=== PATIENT | male | born 1980 | race Caucasian/White ===

== ENCOUNTER 2020-06-01 11:27 | Emergency (ER) | payer OTHER ==
[~2020-06-01] VITALS: Ht 170.2 cm; Wt 72.6 kg
[~2020-06-01 11:27] MED LIST: CELEXA 10 MG TA10 M1 PO; CELEXA40 MG PO; NORCO 5-325 TA1 EACH PO
[2020-06-01 12:29] LABS: URINE BILIRUBIN NEGATIVE (Negative); URINE BLOOD NEGATIVE (Negative); URINE CLARITY CLEAR; URINE COLOR YELLOW; URINE GLUCOSE-RANDOM 1+ (Negative); URINE KETONES NEGATIVE (Negative); URINE LEUKOCYTES-REFLEX NEGATIVE (Negative); URINE NITRITE-REFLEX NEGATIVE (Negative); URINE PROTEIN 1+ (Negative); URINE SPECIFIC GRAVITY 1.015 (1.005-1.030); URINE UROBILINOGEN 0.2 E.U./dl (0.2-1.0)
[2020-06-01 12:30] LABS: HEMATOCRIT 49.8 % (42.0-52.0); HEMOGLOBIN 16.6 gm/dL (14.0-18.0); MCH 30.2 pg (26.0-34.0); MCHC 33.2 g/dL (28.0-37.0); MCV 90.8 fL (80.0-100.0); MPV 7.5 fl. (7.2-11.1); NUCLEATED RBCS 0 /100WBC; PLATELET COUNT* 211 thou/uL (150-400); RBC 5.49 mil/uL (4.50-6.00); RDW-CV 13.6 % (10.5-14.5); WBC 15.3 thou/uL (4.0-11.0)
[2020-06-01 12:41] LABS: CALCIUM 9.4 mg/dL (8.5-10.1); CREATININE 1.2 mg/dL (0.6-1.3); POTASSIUM 3.8 mmol/L (3.5-5.1)
[2020-06-01 12:46] LABS: ALBUMIN 4.3 g/dL (3.4-5.0); TOTAL BILIRUBIN 0.5 mg/dL (<0.1-1.0); TOTAL PROTEIN 7.7 g/dL (6.4-8.2)
[2020-06-01 13:04] LABS: ABSOLUTE LYMPHOCYTES 1.1 thou/uL (0.8-5.3); ABSOLUTE NEUTROPHILS 14.2 thou/uL (1.6-8.1); PLATELET ESTIMATE ADEQUATE
[2020-06-01] MEDS ORDERED: ZOFRAN ODT4 MG DISSOLVE (15:07)
[2020-06-01] MEDS ORDERED: CARAFATE 1 GM TA1 G1 PO (15:07)
[2020-06-01] MEDS ORDERED: HYDROCODON-ACE1 EAC7 PO (15:07)
[2020-06-01 15:22] VITALS: BP 108/62
--- NOTE | 2020-06-02 16:07 | EKG ---
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
== END 2020-06-01 15:23 | disposition home or self-care (01) ==
LOC: M.ERS 11:27
PROVIDERS: Emergency Medicine Emergency Medical Services; Nurse Practitioner Family
DX: R10.13 Epigastric pain (principal); F17.210 Nicotine dependence, cigarettes, uncomplicated

== ENCOUNTER 2021-06-22 16:26 | Observation (INO) | payer OTHER ==
[~2021-06-22] VITALS: Ht 170.2 cm; Wt 68.0 kg
[~2021-06-22 16:26] MED LIST changes: +CARAFATE 1 GM TA1 G1 PO; +HYDROCODON-ACE1 EAC7 PO; +ZOFRAN ODT4 MG DISSOLVE
[2021-06-22 16:39] VITALS: BP 137/87
[2021-06-22 16:49] LABS: ABSOLUTE EOSINOPHILS 0.1 thou/uL (0.0-0.7); ABSOLUTE LYMPHOCYTES 5.3 thou/uL (0.8-5.3); ABSOLUTE MONOCYTES 1.2 thou/uL (0.0-1.2); ABSOLUTE NEUTROPHILS 6.8 thou/uL (1.6-8.1); BASOPHILS 0.2 %; HEMATOCRIT 47.2 % (42.0-52.0); HEMOGLOBIN 15.8 gm/dL (14.0-18.0); LYMPHOCYTES 39.2 %; MCH 30.6 pg (26.0-34.0); MCHC 33.5 g/dL (28.0-37.0); MCV 91.3 fL (80.0-100.0); MONOCYTES 9.1 %; MPV 7.4 fl. (7.2-11.1); NUCLEATED RBCS 0 /100WBC; PLATELET COUNT* 231 thou/uL (150-400); POLYS 50.5 %; RBC 5.16 mil/uL (4.50-6.00); RDW-CV 13.7 % (10.5-14.5); WBC 13.5 thou/uL (4.0-11.0)
[2021-06-22 16:56] LABS: CALCIUM 9.6 mg/dL (8.5-10.1); CREATININE 1.3 mg/dL (0.6-1.3); POTASSIUM 3.6 mmol/L (3.5-5.1)
[2021-06-22 17:00] LABS: ALBUMIN 4.2 g/dL (3.4-5.0); TOTAL BILIRUBIN 0.8 mg/dL (<0.1-1.0); TOTAL PROTEIN 7.3 g/dL (6.4-8.2)
[2021-06-22] MEDS ORDERED: FLOMAX0.4 MG PO (17:40)
[2021-06-22] MEDS ORDERED: CIPROFLOXACIN500 M1 PO (17:40)
[2021-06-22] MEDS ORDERED: PERCOCET PO (17:40)
[2021-06-22] MEDS ORDERED: ZOFRAN ODT4 MG DISSOLVE (17:42)
[2021-06-22 17:50] LABS: URINE BILIRUBIN NEGATIVE (Negative); URINE BLOOD 3+ (Negative); URINE CLARITY CLEAR; URINE COLOR YELLOW; URINE GLUCOSE-RANDOM NEGATIVE (Negative); URINE KETONES 1+ (Negative); URINE LEUKOCYTES-REFLEX NEGATIVE (Negative); URINE NITRITE-REFLEX NEGATIVE (Negative); URINE PROTEIN NEGATIVE (Negative); URINE SPECIFIC GRAVITY 1.025 (1.005-1.030); URINE UROBILINOGEN 0.2 E.U./dl (0.2-1.0)
[2021-06-22 17:57] LABS: AMP/METHAMP Negative (Negative); BARBITURATES Negative (Negative); BENZODIAZEPINES Negative (Negative); COCAINE Negative (Negative); METHADONE Negative (Negative); OPIATES POSITIVE (Negative); PCP Negative (Negative); THC POSITIVE (Negative)
[2021-06-22 18:13] LABS: SQUAMOUS 4-10 Moderate /LPF (0-3); URINE WBC-REFLEX 0-5 Rare /HPF (0-5)
[2021-06-22 18:14] LABS: BACTERIA-REFLEX 1-9 Few /HPF (None Seen); CASTS None Seen /LPF (None Seen); CRYSTALS None Seen /LPF (None Seen); MUCUS 0-3 Light strn/LPF (None Seen); URINE RBC >20 Many /HPF (0-2)
[2021-06-22 20:00] VITALS: BP 120/72
[2021-06-22 21:20] VITALS: BP 93/48
--- NOTE | 2021-06-23 05:37 | NUR ---
PT AO X4 RATING PAIN IN RLQ 10/15, MORPHINE GIVEN WITH GOOD RELIEF. FLUIDS INFUSING, PT NPO THIS AM. PT MAKES NEEDS KNOWN WITH HOURLY ROUNDING.
--- NOTE | 2021-06-23 10:19 | NUR ---
CM COMPLETED ASSESSMENT W/PT. PT LIVES AT HOME W/"MY KIDS." PT IS ACTIVE AND INDEPENDENT W/CARES. PT HAS NO DMES. PT DENIES HX WITH HH OR SNF. THERE ARE NO ANTICIPATED CM D/C NEEDS.
[2021-06-23] MEDS ORDERED: PERCOCET PO (11:08)
[2021-06-23] MEDS ORDERED: FLOMAX0.4 MG PO (11:08)
[2021-06-23 11:13] VITALS: BP 93/48
[2021-06-23 11:34] VITALS: BP 93/48
--- NOTE | 2021-06-23 11:38 | NUR ---
Assumed care at 0730. Pt is alert and oriented. Flank pain 11/14. Assessment done. Pt was dc'd at 1130. Pt left with a friend. Dc'd instruction was given. Pt stated his appreciation for the care he received.
== END 2021-06-23 11:30 | disposition home or self-care (01) ==
LOC: M.ERS 16:26 → M.2W 18:34 → M.TBA-ER 18:34 → M.2W 20:01
PROVIDERS: Family Medicine; Physician Assistant Medical; ADMIT Internal Medicine; ATTEND Internal Medicine
DX: N13.2 Hydronephrosis with renal and ureteral calculous obstruction (principal); R11.2 Nausea with vomiting, unspecified; D14.30 Benign neoplasm of unspecified bronchus and lung; N28.1 Cyst of kidney, acquired; Z20.822 Contact with and (suspected) exposure to COVID-19; Z79.899 Other long term (current) drug therapy